=== PATIENT | male | born 1995 ===

== ENCOUNTER 2018-07-14 19:39 | Emergency (ER) | payer BC ==
--- NOTE | 2018-07-14 22:06 | ED ---
Headache - HPI Summary HPI Summary: Patient is a 22 y/o M presenting to ED with complaints of parietal headache, fever, and "false memories". 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 At this time, he experienced sudden onset FABIAN, and "false memories". He additionally states that he did not recall how he arrived home. Difficulties with memory resolved after five minutes. Patient claims fever onset ten minutes later, he did not measure temperature, states he just felt hot. He took Tylenol SEDIMENTATIONIST, notes that FABIAN has lessened but is still present. PMHx of anxiety, patient is on Prozac. On triage, pain is rated 2/10, it is reported that patient stated "shaking my head makes it worse, I guess", nothing is noted to alleviate Sx. Home medications and allergies are reviewed. - History Of Current Complaint Chief Complaint: EDHeadache Stated Complaint: HEADACHE/FEVER Time Seen by Provider: 07/14/18 21:51 Hx Obtained From: Patient Onset/Duration: Started hours ago, Still Present Initially Headache Was: Moderate Currently Pain Is: Current Pain Scale(0-10)= - 2/10, Mild Timing: Minutes - difficulty with memories lasted 5 minutes, Hours - FABIAN, reported fever Character: Typical Headache Location of Headache: Parietal Aggravating Factor: Other - movement of head Allevating Factors: Nothing Associated Signs And Symptoms: Fever, Other (Noted In Comments) - "false memories", difficulty remembering - Allergies/Home Medications Allergies/Adverse Reactions: Allergies Allergy/AdvReac Type Severity Reaction Status Date / Time lactose Allergy Diarrhea Verified 07/14/18 19:56 Home Medications: Home Medications Fluoxetine HCl [Prozac] 30 mg PO DAILY 07/14/18 [History Confirmed 07/14/18] PMH/Surg Hx/FS Hx/Imm Hx Sensory History: Denies: Hx Legally Blind, Hx Deafness Opthamlomology History: Denies: Hx Legally Blind EENT History: Denies: Hx Deafness Infectious Disease History: No Infectious Disease History: Denies: Traveled Outside the [place] in Last 30 Days - Family History Known Family History: Negative: Blood Disorder - Social History Alcohol Use: None Substance Use Type: Reports: None Smoking Status (MU): Never Smoked Tobacco Review of Systems Positive: Fever Neurological: Other - "false memories", difficulty remembering Positive: Headache All Other Systems Reviewed And Are Negative: Yes Physical Exam - Summary Physical Exam Summary: VITAL SIGNS: Reviewed. GENERAL: Patient is a well-developed and nourished male who is lying comfortable in the stretcher. Patient is not in any acute respiratory distress. HEAD AND FACE: No signs of trauma. No ecchymosis, hematomas or skull depressions. No sinus tenderness. EYES: PERRLA, EOMI x 2, No injected conjunctiva, no nystagmus. EARS: Hearing grossly intact. Ear canals and tympanic membranes are within normal limits. MOUTH: Oropharynx within normal limits. NECK: Supple, trachea is midline, no adenopathy, no JVD, no carotid bruit, no c- spine tenderness, neck with full ROM. CHEST: Symmetric, no tenderness at palpation LUNGS: Clear to auscultation bilaterally. No wheezing or crackles. CVS: Regular rate and rhythm, S1 and S2 present, no murmurs or gallops appreciated. ABDOMEN: Soft, non-tender. No signs of distention. No rebound no guarding, and no masses palpated. Bowel sounds are normal. EXTREMITIES: FROM in all major joints, no edema, no cyanosis or clubbing. NEURO: Alert and oriented x 3. No acute neurological deficits. Speech is normal and follows commands. GCS 15 SKIN: Dry and warm Inguinal lymphenadnitis Triage Information Reviewed: Yes Vital Signs On Initial Exam: Initial Vitals Temp Pulse Resp BP Pulse Ox 98.7 F 83 16 141/98 98 07/14/18 19:53 07/14/18 19:53 07/14/18 19:53 07/14/18 19:53 07/14/18 19:53 Vital Signs Reviewed: Yes Diagnostics - Vital Signs Vital Signs Temp Pulse Resp BP Pulse Ox 07/14/18 19:53 98.7 F 83 16 141/98 98 - Laboratory Result Diagrams: 07/14/18 22:40 07/14/18 22:40 Lab Statement: Any lab studies that have been ordered have been reviewed, and results considered in the medical decision making process. - CT BRAIN CT CT Interpretation Completed By: Radiologist Summary of CT Findings: BRAIN CT IMPRESSION: No acute intracranial abnormality. THIS REPORT WAS REVIEWED BY ED PHYSICIAN. Re-Evaluation - Re-Evaluation First Eval Re-Evaluation Time: 21:54 Change: Improved Comment: Patient states that he feels better and wants to go home. Patient is discharged, advised to follow up with PCP. Headache Course/Dx - Course Course Of Treatment: Patient is a 22 y/o M presenting to ED with complaints of parietal headache, fever, and "false memories". 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 At this time, he experienced sudden onset FABIAN, and "false memories". He additionally states that he did not recall how he arrived home. Difficulties with memory resolved after five minutes. Patient claims fever onset ten minutes later, he did not measure temperature, states he just felt hot. He took Tylenol SEDIMENTATIONIST, notes that FABIAN has lessened but is still present. PMHx of anxiety, patient is on Prozac. Normal physical exam, GCS 15. BRAIN CT IMPRESSION: No acute intracranial abnormality. Abnormal labs included glucose 106. CRP was 3.05, WBC 6.1. During ED course, patient received fluids, reglan 10 mg IV SLOW PU ONCE ONE, Toradol 30 mg IV PUSH ED ONCE ONE, and Benadryl 50 mg PO ED ONCE ONE. Patient states that he feels better and wants to go home. Patient is discharged, advised to follow up with PCP. - Diagnoses Provider Diagnoses: Headache Discharge - Sign-Out/Discharge Documenting (check all that apply): Patient Departure - discharge - Discharge Plan Condition: Stable Disposition: HOME Patient Education Materials: General Headache (ED) Referrals: [facility] [Outside] - 2 Days Additional Instructions: RETURN TO THE EMERGENCY DEPARTMENT FOR CHANGING OR WORSENING SYMPTOMS. FOLLOW UP WITH PRIMARY CARE PHYSICIAN IN 1-2 DAYS. - Attestation Statements Document Initiated by Scribe: Yes Documenting Scribe: OSCAR QUINTANILLA Provider For Whom Laure is Documenting (Include Credential): ARON JARAMILLO MD Scribe Attestation: OSCAR Johnson , scribed for ARON JARAMILLO MD on 07/14/18 at [id number]. Status of Scribe Document: Ready
[2018-07-14] MEDS ORDERED: Metoclopramide IV* 5 MG/ML 2 ML VIAL IV SLOW PU ONE (22:07)
[2018-07-14] MEDS ORDERED: Ketorolac INJ* 30 MG/ML 1 ML VIAL IV PUSH ONE (22:07)
[2018-07-14] MEDS ORDERED: NS 0.9% 1000 ML* 1,000 ML IV ONE (22:07)
[2018-07-14] MEDS ORDERED: diPHENhydraMINE PO* 50 MG PO ONE (22:08)
[2018-07-14 22:23] VITALS: BP 139/82
[2018-07-14 22:55] LABS: ABS Basophils 0.1 10^3/ul (0-0.2); ABS Eosinophils 0.2 10^3/ul (0-0.6); ABS Monocytes 0.4 10^3/ul (0-0.8); ABS Neutrophils 3.4 10^3/ul (1.5-7.7); ABS Nucleated RBC 0 10^3/ul; Eosinophil % 3.9 %; Hematocrit 44 % (42-52); Hemoglobin 15.1 g/dl (14.0-18.0); Lymphocyte % 33.1 %; Mean Corpuscular HGB Conc 35 g/dl (31-36); Mean Corpuscular Hemoglobin 31 pg (27-31); Mean Corpuscular Volume 88 fL (80-94); Mean Platelet Volume 8.2 fL (7.4-10.4); Nucleated Red Blood Cells % 0.1; Platelet Count 167 10^3/ul (150-450); Red Blood Count 4.94 10^6/ul (4.00-5.40); Red Cell Distribution Width 13 % (10.5-15); White Blood Count 6.1 10^3/ul (3.5-10.8)
[2018-07-14 23:13] LABS: EGFR Non-African American 111.7 (>60)
== END 2018-07-14 23:32 | disposition home or self-care (01) ==
LOC: ED 19:39
DX: R51 Headache (principal); R50.9 Fever, unspecified
CPT/HCPCS: 36415; 70450; 80053; 83735; 85025; 86140; 96374; 96375; 99282; A9270-GY; J1885; J2765